=== PATIENT | male | born 1985 | race Caucasian/White ===

== ENCOUNTER 2022-12-07 15:59 | Emergency (ER) | payer OTHER, SELFPAY ==
[2022-12-07 16:03] VITALS: BP 126/84; PULSE 78; RESP 18; TEMP 36.8; O2SAT 98
--- NOTE | 2022-12-07 17:00 | DI.RAD_ITS ---
Exam(s) XR SHOULDER RT COMPLETE 2+V EXAM: XR SHOULDER RT COMPLETE 2+V CLINICAL HISTORY: Trauma. TECHNIQUE: 2D digital imaging was performed. Three views. COMPARISON: No exams were available for comparison FINDINGS: BONES: Fracture distal 3rd of the clavicle with overriding of fracture fragments. No significant ang ulation. Metallic anchors are noted in the humeral head related to rotator cuff repair. No bony beau tructive lesion is seen. JOINTS: No dislocation present. SOFT TISSUE: Normal. IMPRESSION: Clavicle fracture. DATA REPOSITORY: RADIATION DOSE DELIVERED:
--- NOTE | 2022-12-07 17:00 | DI.RAD_ITS ---
Exam(s) XR CLAVICLE RT EXAM: XR CLAVICLE RT CLINICAL HISTORY: Trauma TECHNIQUE: 2D digital imaging was performed. COMPARISON: No exams were available for comparison FINDINGS: BONES: Fracture distal 3rd of the clavicle with overriding of fracture fragments but no significant a ngulation. No additional fractures identified. Postsurgical changes of the humeral head. No bony d estructive lesion is seen. JOINTS: No dislocation present. SOFT TISSUE: Normal IMPRESSION: Clavicle fracture. DATA REPOSITORY: RADIATION DOSE DELIVERED:
--- NOTE | 2022-12-07 17:00 | DI.RAD_ITS ---
Exam(s) XR RIBS RT W PA LAT CHEST CLINICAL HISTORY: Trauma. COMPARISON: No exams were available for comparison TECHNIQUE:: PA and lateral views of the chest and four views of the right ribs were performed. FINDINGS: LUNGS:Clear. No pleural abnormality seen. HEART: Normal. MEDIASTINUM: Normal. BONES: Distal clavicle fracture. No displaced rib fracture is seen. No bony destructive lesion is se en. Spine unremarkable. OTHER FINDINGS: None. IMPRESSION: 1. Unremarkable radiographic appearance of the right ribs. Clavicle fracture. 2. No acute pulmonary findings.
--- NOTE | 2022-12-07 17:12 | W.ED.GENAD ---
Discharge Plan Disposition Patient Disposition: Home Discharge Details Clinical Impression: Closed fracture of right clavicle Primary Care Provider: Tracie Colon ED Provider: Farideh Ellis Discharge Instructions Instructions: Clavicle Fracture (ED) Additional Instructions: Follow-up with orthopedics within the next week. Wear the sling and shoulder immobilizer daily for comfort. Take the pain medication as needed for moderate to severe pain. Take it with food and no driving or operating heavy machinery. Please take Tylenol or Ibuprofen with food every 4-6 hours as needed for pain and swelling. Return to the ER or be seen sooner for any worsening shortness of breath, chest pain, vomiting blood, productive cough or any concerns. Follow up with primary care provider in 3-5 days. Return to ED sooner if any worsening or concerns. Increase oral fluids. Stand Alone Forms: Work Release Referrals: Miguel Angel Coronel MD [ [facility] STAFF PHYSICIAN] - 1 week Medical Decision Making 37-year-old male presents to the ER after a skiing accident earlier today. He is complaining of right shoulder right clavicle and right rib pain. Denies hitting his head no loss of consciousness denies any neck or back pain. He was wearing a helmet. Did not take any medications prior to arrival. Distal CMS is intact. He is in a sling. X-rays ordered of rib, shoulder Percocet and Zofran ordered. X-rays show a mid to distal shaft clavicle fracture. No evidence of rib fractures or shoulder dislocation. He does have some hardware noted to the right shoulder. Patient was placed in a sling and shoulder immobilizer. Was given oxycodone 4 tablets to go. Instructed on home care follow-up with Ortho and Tylenol and ibuprofen he verbalized understanding. This text was generated using [employer] dictation system, please disregard any oddities of phrase or misspellings. Imaging Data Radiologic Study: Imaging: X-Ray Radiologist's impression: Imaging protocol: Radiologic exam of the right ribs. Views: 2 views. COMPARISON: CR XR CLAVICLE RT 12/07/2022 6:39 PM FINDINGS: Bones/joints: Normal. Soft tissues: Normal. IMPRESSION: No acute findings. PROCEDURE Clinical indication: Other: Trauma TECHNIQUE: Imaging protocol: Radiologic exam of the chest. Views: 2 views. MICHAEL OLIVARES Preliminary Radiology Report COMPARISON: CR XR CLAVICLE RT 12/07/2022 6:39 PM FINDINGS: Lungs: Unremarkable. No consolidation. Pleural spaces: Unremarkable. No pleural effusion. No pneumothorax. Heart/Mediastinum: Prominent ascending aorta with mild tortuosity No cardiomegaly. Bones/joints: Mid to distal right clavicular fracture Postsurgical changes left shoulder and suspected chronic Hill-Sachs deformity. Postsurgical changes right shoulder IMPRESSION: Mid to distal right clavicular fracture Thank you for allowing us to participate in the care of your patient. Dictated and Authenticated by: Les Aragon MD [facility] General Mode of arrival: ambulatory. Date/Time Provider Initiated Documentation: 12/07/22 16:34. Limitations to Documentation: no limitations. Information obtained by: patient, RN notes reviewed and old records reviewed. HPI Narrative: 37-year-old male presents to the ER after a skiing accident earlier today. He is complaining of right shoulder right clavicle and right rib pain. Denies hitting his head no loss of consciousness denies any neck or back pain. He was wearing a helmet. Did not take any medications prior to arrival. Distal CMS is intact. He is in a sling. General Stated Complaint: Orthopedic SANDHYA: 4 Review of Systems All systems reviewed & are unremarkable except as noted in HPI and below Constitutional Constitutional: Denies headache(s) ENT Ears, Nose, Mouth, and Throat: Denies headache(s) and Denies neck pain Musculoskeletal Musculoskeletal: Reports as per HPI, Denies back pain, Reports arthralgias, Reports joint swelling, Reports limited range of motion and Denies neck pain Neurologic Neurologic: Denies headache(s) and Denies other visual disturbances PFSH All Active Problems Closed fracture of right clavicle (Acute) Social History Smoking/Tobacco Use Status: Never Smoking risk assessment performed?: Yes Alcohol Intake: current Alcohol Intake frequency: a few times a week Drug use: Daily Substance use type: marijuana Do you feel safe at home: Yes Do you feel safe in your relationship?: Yes Exam Narrative Exam Narrative: General: Well Developed, Awake and Alert, conversant. Skin: Warm and Dry HEENT: Head: No palpable deformities, Normocephalic Eyes: Pupils PERRLA, EOM's intact. No periorbital eccymosis or step off Ears: Canal patent. Tympanic membranes are clear . No wiley's sign, no hemptympanum. Nose/Face: Atraumatic. Facial bones nontender to palpation and stable with manipulation. Mouth/Throat: No intraoral trauma. Teeth and mandible are intact. Neck: No midline tenderness, no step off, no deformity to palpation of C-spine. Trachea midline. Chest: No surface trauma. Nontender without crepitus or deformity. Lungs clear to ausculatation bilaterally. Heart: RRR, no rubs, murmurs or gallop. Abdomen: No abrasions, ecchymosis, or surface trauma. Nondistended. Nontender to palpation no guarding, rebound, or rigidity. Pelvis: Nontender to palpation and stable to compression. Femoral pulses strong and equal Extremities: no surface trauma. Sensation intact. Peripheral pulses intact and equal. Neuro: ANO x4, GCS 15, cranial nerves II through XII intact. Motor and sensory exam nonfocal. Reflexes are symmetric. Course Vital Signs Vital signs: Vital Signs Temperature 36.8 C 12/07/22 16:03 Pulse 78 12/07/22 16:03 Respiratory Rate 18 12/07/22 16:03 Blood Pressure 126/84 12/07/22 16:03 Pulse Oximetry 98 12/07/22 16:03 Temperature 36.8 C 12/07/22 16:03 Pulse 78 12/07/22 16:03 Respiratory Rate 18 12/07/22 16:03 Respiratory Effort Normal 12/07/22 16:06 Blood Pressure 126/84 12/07/22 16:03 Pulse Oximetry 98 12/07/22 16:03 Oxygen Delivery Method Room Air 12/07/22 16:03 Oxygen Flow Rate 0 12/07/22 16:03 Pain Level 9 12/07/22 16:03 PAWSS Have you Been Recently Intoxicated or Drunk Within the Last 30 days?: No Have you Ever Experienced Previous Episodes of Alcohol Withdrawal?: No Have you ever Experienced Withdrawal Seizures?: No Have you ever Experienced Delirium Tremens(DT)s?: No Have you ever undergone Alcohol Rehabilitation Treatment (i.e, inpt ot outpatient treatment programs)?: No Have you ever Experienced Blackouts?: No Have you ever Combined Alcohol with other Downers within the last 90 days?: No Have you ever Combined Alcohol with any other Substance of Abuse during the last 90 days?: No Positive Blood Alcohol level on Presentation? [PCS.BAL]: No Evidence of Increased Autonomic Activity (i.e. HR>120, tremor, sweating, agitation, nausea)?: No Result: 0
[2022-12-07] MEDS: oxyCODONE 5 mg/Acetaminophen 325 mg TAB 1 TAB PO (17:19)
[2022-12-07] MEDS: Ondansetron O.D.T. 4 MG TABEF PO (17:19)
--- NOTE | 2022-12-07 19:02 | DI.VRAD_ITS ---
PROCEDURE INFORMATION: Exam: XR Right Ribs Exam date and time: 12/07/2022 6:43 PM Age: 37 years old Clinical indication: Other: Trauma TECHNIQUE: Imaging protocol: Radiologic exam of the right ribs. Views: 2 views. COMPARISON: CR XR CLAVICLE RT 12/07/2022 6:39 PM FINDINGS: Bones/joints: Normal. Soft tissues: Normal. IMPRESSION: No acute findings. PROCEDURE INFORMATION: Exam: XR Chest Exam date and time: 12/07/2022 6:43 PM Age: 37 years old Clinical indication: Other: Trauma TECHNIQUE: Imaging protocol: Radiologic exam of the chest. Views: 2 views. COMPARISON: CR XR CLAVICLE RT 12/07/2022 6:39 PM FINDINGS: Lungs: Unremarkable. No consolidation. Pleural spaces: Unremarkable. No pleural effusion. No pneumothorax. Heart/Mediastinum: Prominent ascending aorta with mild tortuosity No cardiomegaly. Bones/joints: Mid to distal right clavicular fracture Postsurgical changes left shoulder and suspected chronic Hill-Sachs deformity. Postsurgical changes right shoulder IMPRESSION: Mid to distal right clavicular fracture Dictated and Authenticated by: Les Aragon MD. Ordering:VERONIQUE Gong MD
--- NOTE | 2022-12-07 19:02 | DI.VRAD_ITS ---
PROCEDURE INFORMATION: Exam: XR Right Clavicle, Complete Exam date and time: 12/07/2022 6:39 PM Age: 37 years old Clinical indication: Injury or trauma; Fall and other: Ski traum; Fracture, traumatic injury; Closed fracture; Clavicle; Right TECHNIQUE: Imaging protocol: Radiologic exam of the right clavicle. Complete exam. Views: Any number of views. COMPARISON: CR XR SHOULDER RT COMPLETE 2+V 12/07/2022 6:38 PM FINDINGS: Bones/joints: Mid to distal right clavicular fracture with partially overlapped osseous fragments. There is mild depression of the distal fragment. No dislocation. Postsurgical changes right humeral head Soft tissues: Swelling in the supraclavicular fossa IMPRESSION: Mid to distal right clavicular fracture Dictated and Authenticated by: Les Aragon MD. Ordering:VERONIQUE Gong MD
--- NOTE | 2022-12-07 19:02 | DI.VRAD_ITS ---
PROCEDURE INFORMATION: Exam: XR Right Shoulder Exam date and time: 12/07/2022 6:38 PM Age: 37 years old Clinical indication: Other: Trauma TECHNIQUE: Imaging protocol: Radiologic exam of the right shoulder. Views: 2 or more views. COMPARISON: No relevant prior studies available. FINDINGS: Bones/joints: Mid to distal right clavicular fracture with partial overlap of the osseous fragments Postsurgical changes in the right humeral head and chronic Hill-Sachs deformity suspected Soft tissues: Swelling in the supraclavicular fossa IMPRESSION: Mid to distal right clavicular fracture as noted Dictated and Authenticated by: Les Aragon MD. Ordering:VERONIQUE Gong MD
[2022-12-07] MEDS: Ibuprofen 600 MG TAB PO (19:31)
== END 2022-12-07 19:28 | disposition home or self-care (01) ==
PROVIDERS: Emergency Provider Registered Nurse Emergency; PCP Physician Assistant Medical
DX: S42.021A Displaced fracture of shaft of right clavicle, initial encounter for closed fracture (principal); X58.XXXA Exposure to other specified factors, initial encounter; Y93.23 Activity, snow (alpine) (downhill) skiing, snowboarding, sledding, tobogganing and snow tubing
CPT/HCPCS: 99284; 71046; 71100; 73000; 73030